=== PATIENT | female | born 1965 | race Caucasian/White ===

== ENCOUNTER 2016-09-01 10:31 | Emergency (ER) | payer MEDICAID | END 2016-09-01 12:59 | disposition home or self-care (01) | LOC: D.ER 10:31 | DX: G43.909 Migraine, unspecified, not intractable, without status migrainosus (principal); E86.0 Dehydration; R11.10 Vomiting, unspecified ==

== ENCOUNTER 2017-04-14 12:58 | Emergency (ER) | payer MEDICAID | END 2017-04-14 16:38 | disposition home or self-care (01) | LOC: D.ER 12:58 | DX: M54.5 Low back pain (principal); S39.012A Strain of muscle, fascia and tendon of lower back, initial encounter; X50.0XXA Overexertion from strenuous movement or load, initial encounter; Y93.89 Activity, other specified; Y92.019 Unspecified place in single-family (private) house as the place of occurrence of the external cause; F17.200 Nicotine dependence, unspecified, uncomplicated ==

== ENCOUNTER 2017-08-19 08:00 | Outpatient (CLI) | payer MEDICAID | END 2017-08-19 14:15 | disposition home or self-care (01) | LOC: D.MAMMO 08:00 | DX: Z12.31 Encounter for screening mammogram for malignant neoplasm of breast (principal) ==

== ENCOUNTER 2017-10-18 17:08 | Emergency (ER) | payer MEDICAID ==
[~2017-10-18] VITALS: Ht 165.1 cm; Wt 102.7 kg
[2017-10-18 17:15] VITALS: Ht 165.1 cm; Wt 102.7 kg
[2017-10-18] MEDS ORDERED: FLUTICASONE PRO16 GM NASAL (17:20)
[2017-10-18] MEDS ORDERED: PEPCID AC20 MG PO (17:20)
[2017-10-18] MEDS ORDERED: NORCO 7.5/325 T1 TA1 PO ×2 (17:20→19:26)
[2017-10-18 19:36] VITALS: BP 135/75
== END 2017-10-18 19:37 | disposition home or self-care (01) ==
LOC: D.ER 17:08
DX: S61.412A Laceration without foreign body of left hand, initial encounter (principal); W26.0XXA Contact with knife, initial encounter; Y93.89 Activity, other specified; Y92.019 Unspecified place in single-family (private) house as the place of occurrence of the external cause; K21.9 Gastro-esophageal reflux disease without esophagitis; F17.200 Nicotine dependence, unspecified, uncomplicated

== ENCOUNTER 2017-12-25 12:49 | Emergency (ER) | payer MEDICAID ==
[~2017-12-25] VITALS: Ht 165.1 cm; Wt 101.8 kg
[~2017-12-25 12:49] MED LIST: FLUTICASONE PRO16 GM NASAL; NORCO 7.5/325 T1 TA1 PO; PEPCID AC20 MG PO
[2017-12-25 12:56] VITALS: BP 134/78; Ht 165.1 cm; Wt 101.8 kg
[2017-12-25] MEDS ORDERED: CYCLOBENZAPRINE10 MG PO (12:58)
[2017-12-25] MEDS ORDERED: ADIPEX-P37.5 MG PO (12:58)
[2017-12-25] MEDS ORDERED: IBUPROFEN800 MG PO (12:58)
[2017-12-25] MEDS ORDERED: BEVESPI (12:59)
[2017-12-25] MEDS ORDERED: ULTRAM50 MG PO (14:10)
[2017-12-25] MEDS ORDERED: KEFLEX500 MG PO (14:10)
== END 2017-12-25 14:24 | disposition home or self-care (01) ==
LOC: D.ER 12:49
DX: L02.211 Cutaneous abscess of abdominal wall (principal); J44.9 Chronic obstructive pulmonary disease, unspecified; K21.9 Gastro-esophageal reflux disease without esophagitis; F17.200 Nicotine dependence, unspecified, uncomplicated

== ENCOUNTER 2018-04-11 15:57 | Emergency (ER) | payer MEDICAID ==
[~2018-04-11] VITALS: Ht 165.1 cm; Wt 104.5 kg
[~2018-04-11 15:57] MED LIST changes: +ADIPEX-P37.5 MG PO; +BEVESPI; +CYCLOBENZAPRINE10 MG PO; +IBUPROFEN800 MG PO; +KEFLEX500 MG PO; +ULTRAM50 MG PO
[2018-04-11 16:23] VITALS: Ht 165.1 cm; Wt 104.5 kg
[2018-04-11] MEDS ORDERED: TAMIFLU75 MG PO (17:56)
[2018-04-11] MEDS ORDERED: ZOFRAN ODT4 MG/UDTAB PO (17:56)
[2018-04-11 18:25] VITALS: BP 112/81
== END 2018-04-11 18:25 | disposition home or self-care (01) ==
LOC: D.ER 15:57
DX: J09.X2 Influenza due to identified novel influenza A virus with other respiratory manifestations (principal); R51 Headache; R11.0 Nausea

== ENCOUNTER 2019-01-05 08:00 | Outpatient (CLI) | payer OTHER ==
[2018-04-11 16:23] VITALS: BMI 38.3
[~2019-01-05 08:00] MED LIST changes: +TAMIFLU75 MG PO; +ZOFRAN ODT4 MG/UDTAB PO
== END 2019-01-05 23:59 | disposition home or self-care (01) ==
LOC: D.MAMMO 08:00
PROVIDERS: ATTEND Family Medicine
DX: Z12.31 Encounter for screening mammogram for malignant neoplasm of breast (principal)